=== PATIENT | female | born 1970 | race Caucasian/White ===

== ENCOUNTER 2021-07-20 23:01 | Emergency (ER) | payer OTHER ==
[2021-07-20] MEDS ORDERED: IBUPROFEN 600 MG TABLET PO ONE (23:15)
[2021-07-20] MEDS ORDERED: ACETAMINOPHEN 500 MG TABLET PO ONE (23:15)
[2021-07-21 05:30] VITALS: BP 102/59
== END 2021-07-21 09:23 ==
LOC: EMS 23:07
DX: S92.322A Displaced fracture of second metatarsal bone, left foot, initial encounter for closed fracture (principal); S92.342A Displaced fracture of fourth metatarsal bone, left foot, initial encounter for closed fracture; W13.8XXA Fall from, out of or through other building or structure, initial encounter; Y93.89 Activity, other specified; Y92.89 Other specified places as the place of occurrence of the external cause; Y99.8 Other external cause status
CPT/HCPCS: 29515; 99284